=== PATIENT | male | born 1985 | race Caucasian/White ===

== ENCOUNTER 2021-09-29 17:24 | Emergency (ER) | payer OTHER, BC ==
[2021-09-29 17:54] VITALS: BP 126/91; PULSE 62; TEMP 98.3; BMI 30.7
[2021-09-29] MEDS ORDERED: IBUPROFEN 400 MG TABLET (FP) PO ONE (18:17)
[2021-09-29] MEDS ORDERED: ACETAMINOPHEN 500 MG TABLET (FP) PO ONE (18:17)
[2021-09-29] MEDS ORDERED: CYCLOBENZAPRINE HCL 5 MG TABLET PO ONE (18:34)
[2021-09-29] MEDS ORDERED: CYCLOBENZAPRINE HCL 5 MG TABLET ONE (19:14)
== END 2021-09-29 21:18 | disposition home or self-care (01) ==
LOC: FER 17:24
DX: M25.552 Pain in left hip (principal); S79.912A Unspecified injury of left hip, initial encounter; Y04.0XXA Assault by unarmed brawl or fight, initial encounter
CPT/HCPCS: 71046-TC-FY; 71101-TC-LT-FY; 72192-TC; 99284-25